=== PATIENT | male | born 1990 | race Caucasian/White ===

== ENCOUNTER 2021-06-16 19:14 | Inpatient (IN) | payer OTHER ==
[~2021-06-16] VITALS: Ht 185.4 cm; Wt 136.5 kg
--- NOTE | 2021-06-16 19:24 | NUR ---
PT BIBRA C/O SOB AFTER SWIMMING STATES HE IS UNABLE TO TAKE FULL BREATHS. PT BREATHING LABORED SATTING 99% RA. PT PLACED ON MONITOR HYPERTENSIVE 195/151 HR 101. MD WAS AT BEDSIDE AND MADE AWARE.
[2021-06-16] MEDS ORDERED: NITROGLYCERIN PACKET 1 GM PACKET TD ONE (19:30)
[2021-06-16] MEDS ORDERED: FUROSEMIDE 40 MG/4 ML VIAL IV ONE (19:30)
[2021-06-16] MEDS ORDERED: ASPIRIN 325 MG TABLET PO ONE (19:30)
[2021-06-16] MEDS ORDERED: NITROGLYCERIN PACKET 1 GM PACKET ONE (19:32)
[2021-06-16] MEDS ORDERED: ASPIRIN 325 MG TABLET ONE (19:32)
[2021-06-16] MEDS ORDERED: FUROSEMIDE 40 MG/4 ML VIAL ONE (19:32)
[2021-06-16 20:10] LABS: CALCIUM, SERUM 8.2 mg/dL (8.5-10.1); CARBON DIOXIDE 20 mmol/L (21-32); CHLORIDE 106 mmol/L (98-107); CREATININE 3.5 mg/dL (0.6-1.3); GLUCOSE 97 mg/dL (74-106); POTASSIUM 3.1 mmol/L (3.5-5.1); SODIUM SERUM 140 mmol/L (136-145); UREA NITROGEN, BLOOD 17 mg/dL (7-18)
[2021-06-16 20:22] LABS: ALANINE AMINOTRANSFERASE 19 U/L (12-78); ALKALINE PHOSPHATASE 164 U/L (46-116); ASPARTATE AMINOTRANSFERASE 25 U/L (15-37); BILIRUBIN,DIRECT 0.2 mg/dL (0.0-0.2); BILIRUBIN,TOTAL 0.8 mg/dL (0.2-1.0); TOTAL PROTEIN, SERUM 6.7 g/dL (6.4-8.2)
[2021-06-16 20:23] LABS: BASOPHILS # (AUTO) 0.1 K/uL (0.0-0.2); BASOPHILS % (AUTO) 0.9 % (0.0-2.0); EOSINOPHILS % (AUTO) 8.3 % (0.0-6.0); HEMATOCRIT 45 % (39-51); HEMOGLOBIN 14.5 g/dL (13.5-17.5); LYMPHOCYTES # (AUTO) 0.9 K/uL (0.8-4.8); LYMPHOCYTES % (AUTO) 9.2 % (20.0-44.0); MEAN CORPUSCULAR HGB CONC 33 g/dl (31.0-36.0); MEAN CORPUSCULAR VOLUME 75 fL (80-96); MONOCYTES # (AUTO) 0.8 K/uL (0.1-1.30); MONOCYTES % (AUTO) 8.6 % (2.0-12.0); NEUTROPHILS # (AUTO) 7.2 K/uL (1.8-8.9); PLATELET COUNT (AUTO) 254 K/uL (150-450); RED BLOOD CELL COUNT(AUTO) 5.99 MIL/uL (4.5-6.0); WHITE BLOOD COUNT (AUTO) 9.9 K/uL (4.3-11.0)
[2021-06-16] MEDS ORDERED: ENALAPRILAT DIHYD. (2.5MG/2ML) 1.25 MG/ML VIAL IV ONE (20:30)
[2021-06-16] MEDS ORDERED: ENALAPRILAT INJ (1.25 MG/ML) 1.25 MG/ML VIAL IV ONE (20:33)
--- NOTE | 2021-06-16 20:41 | NUR ---
PT BEING TAKEN TO CT
--- NOTE | 2021-06-16 20:45 | NUR ---
CALLED FOR COVID SWAB
--- NOTE | 2021-06-16 21:00 | NUR ---
COVID SWAB COLLECETED AND SENT TO LAB
--- NOTE | 2021-06-16 22:15 | NUR ---
ROOM 108
--- NOTE | 2021-06-16 22:52 | NUR ---
called for report nurse will call back
[2021-06-16] MEDS: ENOXAPARIN SODIUM 30 MG/0.3 ML DISP.SYRIN SQ SCH (23:00)
[2021-06-16] MEDS ORDERED: Z GUARD REMEDY 2 OZ OINT TP PRN (23:00)
[2021-06-16] MEDS ORDERED: ONDANSETRON HCL/PF 4 MG/2 ML VIAL IVP PRN (23:00)
[2021-06-16] MEDS ORDERED: ACETAMINOPHEN 325 MG TABLET PO PRN (23:00)
[2021-06-16] MEDS ORDERED: ZOLPIDEM TARTRATE 5 MG TABLET PO PRN (23:00)
[2021-06-16] MEDS ORDERED: hydrALAZINE HCL 50 MG TABLET PO PRN (23:00)
[2021-06-16] MEDS: MINERAL OIL/PETROL OINT 396 GM JAR TP SCH (23:00)
--- NOTE | 2021-06-16 23:14 | NUR ---
report given to tyrone
--- NOTE | 2021-06-16 23:20 | NUR ---
teletype or varitype keyboard operator notes Admitted a 31 y/o male a/o x4 ambulatory able to make needs known ,Pts on r/a sating 99% on tele monitor sinus rhythm 78 ,no sob no distress noted , with admitted dx of hydrostatic pulmonary edema / htn under the service of calvin mane , skin and body check noted with generalized body rash , for wound consult in am ,pts is full code nkda ,with iv pheripheral site on left hand G#20 intact and patent ,lovenox dose not given d/t pts refusal explain r/b pts still refused ,pts renal standard diet offered egg sandwich at this time c/o of headache P-05/29 relayed to calvin mane with order to removed nitro patch and give tylenol 650mg as ordered with effect ,v/s stable afebrile .will continue to monitor pts
--- NOTE | 2021-06-16 23:24 | NUR ---
pt transported to 115 on monitor per acls protocol without incident
--- NOTE | 2021-06-16 23:25 | NUR ---
2325 MARC WHITNEY MADE AWARE OF PATIENT'S COMPLAIN OF SEVERE HEADACHE WITH ORDER TO REMOVE NITRO PASTE AND GIVE TYLENOL ORDERED. ORDER NOTED AND CARRIED OUT.
[2021-06-16 23:35] VITALS: BP 148/88
[2021-06-17 01:43] VITALS: BP 136/89
--- NOTE | 2021-06-17 01:44 | NUR ---
telesales professional notes c/o of feeling hot on the fingers and legs ,v/s checked bp 136/89 hr 62 temp 97.9 rr 20 02 sat 98% will continue to monitor pts
--- NOTE | 2021-06-17 01:53 | NUR ---
ms adam notes pts c/o of of perspiring and asking for sugar , blood sugar check 34 mg/dl made aware dext 50% given iv push as ordered ,pts offered apple juice and sandwich will check blood sugar in an hour , will continue to monitor pts. Addendum: 06/17/21 at 0242 by SUSANNA LALA RN This note is not belong to this pts pld disregard the notes ,thank you.
[2021-06-17 04:00] VITALS: BP 145/92
--- NOTE | 2021-06-17 06:40 | NUR ---
television engineer notes Pts remains in bed a/o x4 ambulatory , on sr on the monitor stable /afebrile no sob no distress noted .On R/A sating 97% .will continue to monitor pts.will endorse to rn day shift for continuity of care.
[2021-06-17 06:56] LABS: ALBUMIN 2.4 g/dL (3.4-5.0); BILIRUBIN,TOTAL 0.7 mg/dL (0.2-1.0); CALCIUM, SERUM 7.6 mg/dL (8.5-10.1); CREATININE 3.1 mg/dL (0.6-1.3); MAGNESIUM 1.9 mg/dL (1.8-2.4); PHOSPHORUS 3.8 mg/dL (2.5-4.9); POTASSIUM 2.9 mmol/L (3.5-5.1); TOTAL PROTEIN, SERUM 5.3 g/dL (6.4-8.2)
[2021-06-17 07:03] LABS: BASOPHILS # (AUTO) 0.1 K/uL (0.0-0.2); BASOPHILS % (AUTO) 1.1 % (0.0-2.0); EOSINOPHILS % (AUTO) 10.6 % (0.0-6.0); HEMATOCRIT 39 % (39-51); HEMOGLOBIN 12.9 g/dL (13.5-17.5); LYMPHOCYTES # (AUTO) 0.8 K/uL (0.8-4.8); LYMPHOCYTES % (AUTO) 11.1 % (20.0-44.0); MEAN CORPUSCULAR HGB CONC 33 g/dl (31.0-36.0); MEAN CORPUSCULAR VOLUME 75 fL (80-96); MONOCYTES # (AUTO) 0.8 K/uL (0.1-1.30); MONOCYTES % (AUTO) 10.5 % (2.0-12.0); NEUTROPHILS # (AUTO) 4.9 K/uL (1.8-8.9); NEUTROPHILS % (AUTO) 66.7 % (43.0-81.0); PLATELET COUNT (AUTO) 244 K/uL (150-450); RED BLOOD CELL COUNT(AUTO) 5.28 MIL/uL (4.5-6.0); WHITE BLOOD COUNT (AUTO) 7.3 K/uL (4.3-11.0)
[2021-06-17 07:30] LABS: THYROID STIMULATING HORMONE 3.309 uIU/mL (0.358-3.74)
[2021-06-17] MEDS ORDERED: AMLO-212 PO (07:51)
[2021-06-17] MEDS ORDERED: LISI10TA29 PO (07:51)
[2021-06-17] MEDS ORDERED: ERGO500093 PO (07:51)
[2021-06-17] MEDS ORDERED: CALC0.253 PO (07:51)
[2021-06-17] MEDS ORDERED: METO25TA20 PO (07:51)
[2021-06-17] MEDS ORDERED: VALS160T29 PO (07:51)
[2021-06-17] MEDS ORDERED: ROSU20TA32 PO (07:51)
[2021-06-17 08:00] VITALS: BP 146/108
--- NOTE | 2021-06-17 09:16 | NUR ---
WOUND CARE CONSULT: PT PRESENTS WITH RASH/SKIN CONDITION ON MAJORITY OF HIS BODY WITH RED AREAS, SOME RAISED AND SOME BROWNISH AREAS TO EXTREMITIES AND TRUNK OF BODY, PEELING SKIN NOTED TO FEET AND HANDS WELL SLIGHT FUNGAL RASH TO GROIN FOLDS, ALL PRESENT ON ADMISSION. RECOMMENDATIONS MADE FOR GROINFOLDS. DISCUSSED WITH NURSING STAFF. DEFER TO PMD FOR GENERALIZED RASH/SKIN CONDITION. MD IN AGREEMENT WITH PLAN OF CARE. Addendum: 06/17/21 at 0922 by CIERA ROE WNDNU THERE IS A HEALED SCAR TO LEFT UPPER THIGH. PT HAD WOUND VAC PREVIOUSLY AND WAS TREATED BY PLASTIC SURGEON IN AUG/SEP.
--- NOTE | 2021-06-17 09:30 | NUR ---
RN NOTES PER DR. KILGORE RE RASHES, PT NEEDS TO SEE PULP GRINDER AND BLENDER, SKIN PROBLEMS HAS BEEN THERE SINCE OCTOBER. FOR REPEAT POTASSIUM.
[2021-06-17] MEDS: LISINOPRIL (20MG) 20 MG TABLET PO SCH (09:46)
[2021-06-17] MEDS: MINERAL OIL/PETROL OINT 396 GM JAR TP SCH ×2 (09:52→21:15)
--- NOTE | 2021-06-17 11:47 | NUR ---
RN NOTE RECEIVED REPORT FROM SERNEA. RECEIVED PATIENT ALERT AND ORIENTED X 4. AMBULATORY WITH NO COMPLAIN OF PAIN AT THIS TIME. PATIENT ON ROOM AIR WITH NO SIGNS OF LABORED BREATHING AT THIS TIME. NO COMPLAIN OF PAIN OR DISCOMFORT. PATIENT WITH LEFT HAND G 20 IV ACCESS ON SALINE LOCK. SAFETY MEASURES ENSURED WITH BED LOCKED AND IN LOWEST POSITION, SIDE RAILS UP AND CALL LIGHT WITHIN REACH. WILL CONTINUE TO MONITOR PATIENT.
--- NOTE | 2021-06-17 11:47 | NUR ---
RN NOTES REPORT GIVEN TO ESVIN CHENG FOR CONTINUATION OF CARE.
[2021-06-17 12:00] VITALS: BP 146/108
--- NOTE | 2021-06-17 14:00 | NUR ---
repeat k 3.[address] orders per dr[address] li.
[2021-06-17 16:00] VITALS: BP 144/93
--- NOTE | 2021-06-17 16:26 | NUR ---
seen by renal dr. andrade no new orders.
--- NOTE | 2021-06-17 16:27 | NUR ---
dr. nichols made aware of cardiology consult.
[2021-06-17] MEDS: CLOTRIMAZOLE 1% 15 GM TUBE TP SCH (16:33)
[2021-06-17] MEDS: predniSONE 5 MG TABLET PO SCH (16:33)
[2021-06-17] MEDS: METOPROLOL TARTRATE 25 MG TABLET PO SCH (16:33)
--- NOTE | 2021-06-17 18:47 | NUR ---
RN CLOSING NOTE PATIENT ALERT AND ORIENTED X 4. AMBULATORY WITH NO COMPLAIN OF PAIN AT THIS TIME. PATIENT ON ROOM AIR WITH NO SIGNS OF LABORED BREATHING AT THIS TIME. NO COMPLAIN OF PAIN OR DISCOMFORT. PATIENT WITH LEFT HAND G 20 IV ACCESS ON SALINE LOCK. SAFETY MEASURES ENSURED WITH BED LOCKED AND IN LOWEST POSITION, SIDE RAILS UP AND CALL LIGHT WITHIN REACH. WILL ENDORSE TO NEXT SHIFT FOR CONTINUITY OF CARE.
--- NOTE | 2021-06-17 19:00 | NUR ---
alert and orienateed talkative about his health history stated he wants to seethe counterperson by 9AM and if not he will go AMA patient is friendly and cooperative ambulating independenly
[2021-06-17 20:00] VITALS: BP 148/97
[2021-06-17] MEDS: ENOXAPARIN SODIUM 30 MG/0.3 ML DISP.SYRIN SQ SCH ×2 (21:00→21:07)
[2021-06-17] MEDS ORDERED: ATORVASTATIN 40 MG TABLET PO SCH (22:00)
[2021-06-18 06:17] VITALS: BP 148/97
[2021-06-18 06:20] LABS: BASOPHILS % (AUTO) 0.7 % (0.0-2.0); HEMATOCRIT 42 % (39-51); HEMOGLOBIN 13.5 g/dL (13.5-17.5); LYMPHOCYTES # (AUTO) 1.3 K/uL (0.8-4.8); LYMPHOCYTES % (AUTO) 18.6 % (20.0-44.0); MEAN CORPUSCULAR HGB CONC 33 g/dl (31.0-36.0); MEAN CORPUSCULAR VOLUME 75 fL (80-96); MONOCYTES # (AUTO) 0.7 K/uL (0.1-1.30); MONOCYTES % (AUTO) 9.6 % (2.0-12.0); NEUTROPHILS # (AUTO) 3.9 K/uL (1.8-8.9); NEUTROPHILS % (AUTO) 58.1 % (43.0-81.0); PLATELET COUNT (AUTO) 245 K/uL (150-450); RED BLOOD CELL COUNT(AUTO) 5.56 MIL/uL (4.5-6.0); WHITE BLOOD COUNT (AUTO) 6.7 K/uL (4.3-11.0)
--- NOTE | 2021-06-18 06:28 | NUR ---
CLOSING NOTES: t\TALKATIVE TALKS RAPID ALL ABOUT HIS HEALTH AND WHAT HE HAS BEEN THRU MADE THE STATEMENT THAT IF I DON'T SEE THE LIQUEFACTION PLANT OPERATOR BY 9AM IM SIGNING OUT ABBIE COBIAN STILL PRESENT ANAI ALVAREZ STATES THIS HAPPENED AFTER RECEIVING THE cOVID VACCINE REFUSES TO GET THE 2ND ONE
[2021-06-18 06:58] LABS: CREATININE 2.8 mg/dL (0.6-1.3); MAGNESIUM 2.1 mg/dL (1.8-2.4); PHOSPHORUS 3.3 mg/dL (2.5-4.9); POTASSIUM 3.5 mmol/L (3.5-5.1)
--- NOTE | 2021-06-18 07:14 | NUR ---
NURSE OPENING NOTE RECEIVE REPORT FROM OUT GOING NURSE. PATIENT IN STABLE CONDITION AT TIME OF REPORT. PATIENT A/O X3. AMBULATE. BODY RASH PRESENT WITH NO DISCOMFORT. PATIENT WANT TO SEE CASH GRAIN FARMER PER REPORT GIVEN. ALL SAFETY MEASURE IN PLACE. BED ON THE LOWEST POSITION WITH HOB ELEVATED. 3 SIDE RAIL UP. CALL LIGHT WITHIN REACH. WILL CONTINUE TO MONITOR.
[2021-06-18 08:31] LABS: URINE TOTAL PROTEIN 583.7 mg/dL (0-11.9)
[2021-06-18] MEDS: predniSONE 5 MG TABLET PO SCH (08:53)
[2021-06-18] MEDS: METOPROLOL TARTRATE 25 MG TABLET PO SCH (08:53)
[2021-06-18] MEDS: LISINOPRIL (20MG) 20 MG TABLET PO SCH (08:53)
[2021-06-18 08:54] VITALS: BP 162/100
[2021-06-18] MEDS: MINERAL OIL/PETROL OINT 396 GM JAR TP SCH (08:55)
[2021-06-18] MEDS: CLOTRIMAZOLE 1% 15 GM TUBE TP SCH (08:55)
[2021-06-18] MEDS ORDERED: AMLODIPINE BESYLATE 5 MG TABLET PO SCH (09:00)
[2021-06-18] MEDS ORDERED: CALCITRIOL 0.25 MCG CAPSULE PO SCH (09:00)
[2021-06-18] MEDS ORDERED: FUROSEMIDE 20 MG TABLET PO SCH (09:00)
--- NOTE | 2021-06-18 09:20 | NUR ---
NURSE NOTE PATIENT IS DISCHARGED ON AMA. STABLE AT TIME OF DISCHARGE. ALL PAPER WORK SIGNED AND ALL BELONGING ACCOUNTED FOR. PATIENT WALK OUT TO LOBBY WITH SILVERING APPLICATOR.
== END 2021-06-18 09:10 | disposition home or self-care (01) | DRG 291 ==
LOC: ER 19:29 → TELE1 22:31 → MEDSG1 06-17 08:24
PROVIDERS: ADMIT Nurse Practitioner Acute Care; ATTEND Nurse Practitioner Acute Care
DX: I13.0 Hypertensive heart and chronic kidney disease with heart failure and stage 1 through stage 4 chronic kidney disease, or unspecified chronic kidney disease (principal); I50.33 Acute on chronic diastolic (congestive) heart failure; N17.0 Acute kidney failure with tubular necrosis; N18.4 Chronic kidney disease, stage 4 (severe); I16.0 Hypertensive urgency; E87.6 Hypokalemia; E66.9 Obesity, unspecified; E66.01 Morbid (severe) obesity due to excess calories; Z79.52 Long term (current) use of systemic steroids; E88.09 Other disorders of plasma-protein metabolism, not elsewhere classified; R21 Rash and other nonspecific skin eruption; Z68.39 Body mass index [BMI] 39.0-39.9, adult
CPT/HCPCS: 36415; 71045-TC; 80048-TC; 80053-TC; 80061-TC; 80076-TC; 82570-TC; 83540-TC; 83735-TC; 83880; 84100-TC; 84132-TC; 84155-TC; 84443-TC; 84484-TC; 85025-TC; 87081-TC; 93307-TC; C9803; G0378; J1650; J1940; J3490; J7512